=== PATIENT | female | born 1995 | race Two or more races ===

== ENCOUNTER 2017-10-06 13:03 | Emergency (ER) | payer MEDICAID ==
[~2017-10-06] VITALS: Ht 167.6 cm; Wt 116.1 kg
[2017-10-06 13:41] VITALS: BP 128/94
[2017-10-06 13:50] LABS: Urine Bacteria NONE SEEN /hpf (None Seen); Urine Blood TRACE /uL (Negative); Urine Mucus FEW (None Seen); Urine WBC 2 /hpf (0 - 5)
[2017-10-06] MEDS ORDERED: KETOROLAC TROMETH 60MG/2ML VIAL IM ONE (14:00)
[2017-10-06] MEDS ORDERED: METHOCARBAMOL 500 MG TAB PO ONE (14:00)
== END 2017-10-06 15:12 | disposition home or self-care (01) ==
LOC: ER 13:09
DX: S33.5XXA Sprain of ligaments of lumbar spine, initial encounter (principal); W01.0XXA Fall on same level from slipping, tripping and stumbling without subsequent striking against object, initial encounter; Y93.89 Activity, other specified; Y92.89 Other specified places as the place of occurrence of the external cause; Y99.8 Other external cause status
CPT/HCPCS: 72100; 81001; 81025; 96372; 99285; J1885